=== PATIENT | female | born 1995 | race Caucasian/White ===

== ENCOUNTER 2019-11-17 10:24 | Emergency (ER) | payer MEDICAID, SELFPAY ==
--- NOTE | 2019-11-17 10:29 | ED_ITS ---
HPI - General: Chief complaint: Vaginal Bleeding Stated complaint: preg/spotting Time Seen by Provider: 11/17/19 10:29 Source: patient Mode of arrival: ambulatory Limitations: no limitations History of Present Illness: HPI Narrative: Patient presents today with complaints of vaginal bleeding. Patient noticed some blood when she wiped this morning. Patient denies any cramping or other discomfort. Patient is and last week was told [facility] Patient's last menstrual cycle was October 07. Patient appears well. Patient denies any fever or significant pain. MD Complaint: vaginal bleeding Review of Systems General: Reports: 10 or more systems reviewed and unremarkable except in HPI and below : Reports: vaginal bleeding (mild, spotting) PFSH ED PFSH: Social History Smoking and tobacco status: current every day smoker Physical Exam Const: COMMON NORMALS: no acute distress and patient oriented x3 GENERAL APPEARANCE: cooperative HENMT: COMMON NORMALS: normocephalic and Normal external nose present HEAD & SCALP: normal to inspection and normocephalic NOSE: Normal external nose present MOUTH: Normal oral and palatal mucosa present THROAT: posterior oropharynx normal Eye: GENERAL EYE: appearance normal, both eyes and all related structures Neck/C-Spine: COMMON NORMALS: full ROM Lymph: LYMPHATIC: no lymphadenopathy noted Chest: COMMONS NORMALS: normal inspection of the chest Resp: COMMON NORMALS: normal respiratory effort EFFORT & INSPECTION: Yes able to speak in complete sentences Cardio: COMMON NORMALS: regular rate and regular rhythm RATE: regular rate RHYTHM: regular rhythm GI: COMMON NORMALS: non-tender : COMMON NORMALS: Yes no CVA tenderness BLADDER/KIDNEY EXAM: Yes no CVA tenderness Back/Pelvis: COMMON NORMALS: no CVA tenderness and thoracic and lumbar spine normal to inspection Extremity: COMMON NORMALS: normal to inspection Neuro: COMMON NORMALS: patient oriented x3 and moves all extremities Psych: COMMON NORMALS: mental status grossly normal and cooperative Skin: COMMON NORMALS: no rashes or lesions noted GENERAL SKIN EXAM: no rashes or lesions noted Course Vital Signs: Vital signs: Vital Signs Temperature 97.7 F 11/17/19 10:30 Pulse Rate 75 11/17/19 10:30 Respiratory Rate 16 11/17/19 10:30 Blood Pressure 109/73 11/17/19 10:30 Pulse Oximetry 100 06/24/20 10:30 MDM - OB/Uterine Contractions MDM Narrative: Medical decision making narrative: Patient came in this morning for concerns of spotting when she wiped. Patient appears well. Patient denies any cramping in the lower abdomen. Respirations were even lungs are clear to auscultation. Bowel sounds were present. No tenderness is noted on palpation the abdomen. Differential diagnosis includes but not limited to urinary tract infection, threatened miscarriage, spontaneous , first trimester idiopathic bleeding. Laboratory values were normal. Urinalysis was clear. hCG was 5500. Ultrasound noted a 5-week 5-day fetus and closed cervix. Reviewed exam with patient recommendations for treatment and follow-up. Patient reported understanding agreed to plan. Lab Data: Labs: Lab Results 11/17/19 11/17/19 11/17/19 Range/Units 10:43 10:43 10:43 WBC 7.5 (4.0-10.0) 10^3/ uL RBC 4.62 (4.1-5.3) 10^6/u L Hgb 14.3 (11.5-15.3) g/dL Hct 42.8 (37.0-47.0) % MCV 92.6 (81-99) fL MCH 31.0 (28.0-34.0) pg MCHC 33.4 (30.0-36.0) g/dL RDW 12.8 (12.1-15.1) % Plt Count 272 (130-400) 10^3/c mm MPV 9.9 (7.4-10.4) fL Neut % (Auto) 64.3 % Lymph % (Auto) 25.4 % Isabella % (Auto) 5.9 % Eos % (Auto) 3.6 % Baso % (Auto) 0.5 % Neut # (Auto) 4.8 (1.8-7.7) 10^3/u L Lymph # (Auto) 1.9 (0.8-4.8) 10^3/u L Isabella # (Auto) 0.4 (0.2-0.9) 10^3/u L Eos # (Auto) 0.3 (0.0-0.8) 10^3/u L Baso # (Auto) 0.0 (0.0-0.1) 10^3/u L Nucleated RBC % (a uto) 0 % Nucleated RBCs # 0.0 /100WBC Sodium 139 (136-145) mmol/L Potassium 4.0 (3.5-5.1) mmol/L Chloride 105 (98-107) mmol/L Carbon Dioxide 24 (22-29) mmol/L Anion Gap 14.0 (5-19) BUN 10 (6-20) mg/dL Creatinine 0.5 (0.5-0.9) mg/dL GFR Calculation 152.9 H (90-130) mL/min Glucose 95 (65-115) mg/dL Calculated Osmolal ity 284 L (285-295) mOsm/k g Calcium 9.3 (8.5-10.5) mg/dL Total Bilirubin 0.8 (0.15-1.2) mg/dL AST 12 (0-32) U/L ALT 10 (0-33) U/L Alkaline Phosphata se 45 (35-105) IU/L Total Protein 7.3 (6.6-8.7) g/dL Albumin 4.4 (3.5-5.2) g/dL Globulin 2.9 (1.3-4.6) g/dL Ser , Sonam i-Qnt 5508.00 mIU/mL Urine Color (Yellow) Urine Appearance (CLEAR) Urine pH (5-7) Ur Specific Gravit y (1.005-1.030) Urine Protein (Negative) Urine Glucose (UA) (Normal) Urine Ketones (Negative) Urine Blood (Negative) Urine Nitrate (Negative) Urine Bilirubin (NEGATIVE) Urine Urobilinogen (Negative) mg/dL Ur Leukocyte Edie ase (Negative) Blood Type A Positive Rho(D) Type Positive 11/17/19 Range/Units 11:27 WBC (4.0-10.0) 10^3/ uL RBC (4.1-5.3) 10^6/u L Hgb (11.5-15.3) g/dL Hct (37.0-47.0) % MCV (81-99) fL MCH (28.0-34.0) pg MCHC (30.0-36.0) g/dL RDW (12.1-15.1) % Plt Count (130-400) 10^3/c mm MPV (7.4-10.4) fL Neut % (Auto) % Lymph % (Auto) % Isabella % (Auto) % Eos % (Auto) % Baso % (Auto) % Neut # (Auto) (1.8-7.7) 10^3/u L Lymph # (Auto) (0.8-4.8) 10^3/u L Isabella # (Auto) (0.2-0.9) 10^3/u L Eos # (Auto) (0.0-0.8) 10^3/u L Baso # (Auto) (0.0-0.1) 10^3/u L Nucleated RBC % (a uto) % Nucleated RBCs # /100WBC Sodium (136-145) mmol/L Potassium (3.5-5.1) mmol/L Chloride (98-107) mmol/L Carbon Dioxide (22-29) mmol/L Anion Gap (5-19) BUN (6-20) mg/dL Creatinine (0.5-0.9) mg/dL GFR Calculation (90-130) mL/min Glucose (65-115) mg/dL Calculated Osmolal ity (285-295) mOsm/k g Calcium (8.5-10.5) mg/dL Total Bilirubin (0.15-1.2) mg/dL AST (0-32) U/L ALT (0-33) U/L Alkaline Phosphata se (35-105) IU/L Total Protein (6.6-8.7) g/dL Albumin (3.5-5.2) g/dL Globulin (1.3-4.6) g/dL Ser , Sonam i-Qnt mIU/mL Urine Color Yellow (Yellow) Urine Appearance Clear (CLEAR) Urine pH 5 (5-7) Ur Specific Gravit y 1.020 (1.005-1.030) Urine Protein Neg (Negative) Urine Glucose (UA) Norm (Normal) Urine Ketones Negative (Negative) Urine Blood Neg (Negative) Urine Nitrate Negative (Negative) Urine Bilirubin Neg (NEGATIVE) Urine Urobilinogen Norm (Negative) mg/dL Ur Leukocyte Edie ase Negative (Negative) Blood Type Rho(D) Type Discharge Plan Discharge Patient Disposition: Home, Self-Care Clinical Impression: Vaginal bleeding, Miscarriage, threatened, early Condition: Stable Prescriptions: No Action 28 mg iron- 800 mcg Tablet 1 tab PO DAILY RF: 0 Discharge Orders: Discharge Order (Routine); Ordered 11/17/19 Ordered By: Jose De La O Discharge Diet: Usual diet Discharge Activity: Increase activity as tolerated Patient Instructions: Threatened Miscarriage (ED) Activity Restrictions/Additional Instructions: Drink plenty of water. Activity as tolerated. Utilize pelvic rest until bleeding has stopped. Follow-up with primary care in 1 week. Return to the ER for worsening pain or heavy bleeding. 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
[2019-11-17 10:30] VITALS: BP 109/73; PULSE 75; RESP 16; TEMP 36.5; O2SAT 100; BMI 25.3
--- NOTE | 2019-11-17 10:31 | US_ITS ---
WS: [id number] EARLY OBSTETRICAL ULTRASOUND (<14 WEEKS). HISTORY: , bleeding COMPARISON: None available. Uterus is slightly enlarged. Uterus is anteverted. There is an intrauterine gestational sac. Normal-a ppearing yolk sac. No cardiac activity is identified. There is what appears to be a pole measuring 2 mm corresponding to a gestation of 5 weeks and 5 days. No free fluid. Both ovaries are identified and contain normal vascularity. No adnexal masses. US/US OB <=14 wk fetus w transvag IMPRESSION: 1. Intrauterine gestational sac without cardiac activity. age calculated at 5 weeks and 5 days. Probably early intrauterine gestation. 2. Recommend follow-up ultrasound in one week to confirm cardiac activity. 3. No adnexal mass.
[2019-11-17 10:52] LABS: Basophils % 0.5 %; Eosinophils # 0.3 10^3/uL (0.0-0.8); Eosinophils % 3.6 %; Hematocrit 42.8 % (37.0-47.0); Hemoglobin 14.3 g/dL (11.5-15.3); Lymphocytes # 1.9 10^3/uL (0.8-4.8); Lymphocytes % 25.4 %; Mean Corpuscular HGB Conc 33.4 g/dL (30.0-36.0); Mean Corpuscular Volume 92.6 fL (81-99); Mean Platelet Volume 9.9 fL (7.4-10.4); Monocytes # 0.4 10^3/uL (0.2-0.9); Monocytes % 5.9 %; Neutrophils # 4.8 10^3/uL (1.8-7.7); Neutrophils % 64.3 %; Nucleated Red Blood Cells % 0 %; Platelet Count 272 10^3/cmm (130-400); Red Blood Count 4.62 10^6/uL (4.1-5.3); Red Cell Distribution Width 12.8 % (12.1-15.1); White Blood Count 7.5 10^3/uL (4.0-10.0)
[2019-11-17 11:13] LABS: Alanine Aminotransferase 10 U/L (0-33); Albumin Level 4.4 g/dL (3.5-5.2); Alkaline Phosphatase 45 IU/L (35-105); Aspartate Amino Transferase 12 U/L (0-32); Blood Urea Nitrogen 10 mg/dL (6-20); Calcium 9.3 mg/dL (8.5-10.5); Carbon Dioxide 24 mmol/L (22-29); Chloride 105 mmol/L (98-107); Globulin 2.9 g/dL (1.3-4.6); Glomerular Filtration Rate 152.9 mL/min (90-130); Glucose 95 mg/dL (65-115); Osmolality Calculated 284 mOsm/kg (285-295); Sodium 139 mmol/L (136-145); Total Bilirubin 0.8 mg/dL (0.15-1.2); Total Protein 7.3 g/dL (6.6-8.7)
--- NOTE | 2019-11-17 11:21 | PC.NURSE ---
US COMPLETED, PATIENT TOLERATED WELL
[2019-11-17 11:32] LABS: Add Urine Microscopic? NO
[2019-11-17 11:37] LABS: Bilirubin Urine Neg (NEGATIVE); Blood Urine Neg (Negative); Glucose Urine UA Norm (Normal); Ketones Urine Negative (Negative); Leukocyte Esterase Urine Negative (Negative); Nitrate Urine Negative (Negative); Protein Urine Neg (Negative); Urine Appearance Clear (CLEAR); Urine Color Yellow (Yellow); Urobilinogen Urine Norm (Negative); pH Urine 5 (5-7)
[2019-11-17 12:16] VITALS: BP 107/81; PULSE 71; RESP 17; O2SAT 100
== END 2019-11-17 12:18 | disposition home or self-care (01) ==
PROVIDERS: Emergency Provider Nurse Practitioner Family
DX: O20.0 Threatened abortion (principal); Z3A.01 Less than 8 weeks gestation of pregnancy; O99.331 Smoking (tobacco) complicating pregnancy, first trimester; F17.210 Nicotine dependence, cigarettes, uncomplicated
CPT/HCPCS: 12345; 36415; 76801; 76817; 76857; 80053; 81003; 84702; 85025; 86900; 87491; 87591; 87661; 99282; 99283

== ENCOUNTER 2020-01-19 20:56 | Emergency (ER) | payer MEDICAID, SELFPAY ==
[2020-01-19 21:47] VITALS: BP 111/70; PULSE 74; RESP 14; TEMP 36.5; O2SAT 98; BMI 25.2
--- NOTE | 2020-01-19 22:16 | XR_ITS ---
WS: [id number] Left foot, 3 views, 01/19/2020 Clinical Data: pain Comparison: None. Findings: No fractures or dislocations are seen. No bone destruction or erosion is noted. The joint spaces and soft tissues are normal. No radiopaque foreign body is seen. XR/XR foot LT min 3V* [id number] Impression: Negative left foot.
--- NOTE | 2020-01-19 23:14 | ED_ITS ---
HPI - Extremity Problem General: Chief complaint: Extremity Injury, Lower Stated complaint: stepped on nail/left foot also 14 weeks preg Time Seen by Provider: 01/19/20 23:14 History of Present Illness: HPI Narrative: Patient is a 24-year-old female that is 14 weeks who comes to the ED with left foot pain. Patient states that earlier today around 9:30 in the morning she stepped on a nail with left foot. Patient was walking barefoot outside and stepped on a nail. She removed the nail from her foot. She now says she has some tenderness and surrounding redness near injury site. Patient has not had an updated tetanus shot. Associated symptoms: Deny chest pain, fever(s) or rash Review of Systems Const: Denies: fever(s), chills or fatigue Eyes: Denies: change in vision or eye discomfort ENMT: Denies: throat pain, odynophagia, nasal discharge or nasal congestion Card: Denies: chest pain, palpitations, edema, swelling of feet/ankles, dyspnea on exertion or orthopnea Resp: Denies: dyspnea, productive cough or non-productive cough GI: Denies: abdominal pain, nausea, vomiting, diarrhea, constipation or hematochezia : Denies: flank pain, dysuria or hematuria Musc: Reports: extremity pain (Left foot pain where she stepped on nail.); Denies: neck pain, back pain or extremity swelling Skin/Breast: Reports: new lesions (Small puncture wound on left foot from where patient stepped on nail.); Denies: rash Neuro: Denies: headache(s), numbness in extremities or weakness in extremities PFS ED PFSH: Social History Smoking and tobacco status: current every day smoker Female Reproductive History: Date of last menstrual period: 10/08/19 Physical Exam Const: COMMON NORMALS: no acute distress, patient oriented x3 and alert GENERAL APPEARANCE: cooperative and comfortable HENMT: COMMON NORMALS: normocephalic HEAD & SCALP: normocephalic MOUTH: Normal oral and palatal mucosa present THROAT: posterior oropharynx normal and uvula midline Neck/C-Spine: COMMON NORMALS: supple GENERAL: Yes normal visual inspection Resp: COMMON NORMALS: normal respiratory effort, No retractions, No use of accessory muscles and clear to auscultation bilaterally AUSCULTATION: clear to auscultation bilaterally Cardio: COMMON NORMALS: regular rate, regular rhythm, S1 normal heart sound present, S2 normal heart sound present, No gallops present (Cardio), No clicks present (Cardio), No murmurs present (Cardio) and Peripheral pulses 2+ throughout RATE: regular rate RHYTHM: regular rhythm HEART SOUNDS: S1 normal heart sound present and S2 normal heart sound present PERIPHERAL PULSES: Peripheral pulses 2+ throughout GI: COMMON NORMALS: Normal to inspection, nondistended, normoactive bowel sounds present, Soft to palpation, non-tender and no masses PALPATION: Yes Soft to palpation : COMMON NORMALS: Yes no CVA tenderness BLADDER/KIDNEY EXAM: Yes no CVA tenderness Back/Pelvis: COMMON NORMALS: no CVA tenderness Extremity: NARRATIVE EXTREMITY EXAM: Patient had very small puncture wound on bottom of left foot. There was some tenderness upon palpation and a little bit of erythema. No purulent discharge. Neuro: COMMON NORMALS: patient oriented x3 and moves all extremities SENSORIUM/ORIENTATION: Yes alert Skin: COMMON NORMALS: no rashes or lesions noted GENERAL SKIN EXAM: no rashes or lesions noted and dry skin Course Vital Signs: Vital signs: Vital Signs Temperature 97.7 F 01/19/20 21:47 Pulse Rate 84 01/20/20 00:27 Respiratory Rate 18 01/20/20 00:27 Blood Pressure 114/64 01/20/20 00:27 Pulse Oximetry 97 01/20/20 00:27 MDM - Extremity (Nontraumatic) MDM Narrative: Medical decision making narrative: Patient is a 24-year-old female comes to the ED with left foot pain after stepping on a nail earlier today. Patient removed the nail from foot. Exam showed a very small puncture wound on bottom of left foot with some surrounding erythema and tenderness. No purulent drainage or warmth. X-ray of left foot showed no acute findings or foreign body seen. Patient was given an updated tetanus shot while here in the ED and given a dose of cephalexin. Patient was sent home with a prophylactic dose of cephalexin to try to prevent any infection. Return to ED precautions given. Follow-up with PCP at next scheduled appointment. Patient understood and agreed with plan. Imaging Data^: Xray Ortho: Attestation: I personally reviewed and interpreted this imaging study as follows: My impression: Left foot x-ray showed no acute findings or foreign body seen. Discharge Plan Discharge Patient Disposition: Home Clinical Impression: Puncture wound of foot Qualifiers: Encounter type: initial encounter Laterality: left Qualified Code(s): S91.332A - Puncture wound without foreign body, left foot, initial encounter Condition: Stable Prescriptions: New cephalexin 500 mg capsule 500 mg PO Q6H 4 Days Qty: 16 RF: 0 No Action 28 mg iron- 800 mcg Tablet 1 tab PO DAILY RF: 0 Discharge Orders: Discharge Order (Routine); Ordered 01/19/20 Ordered By: Mark Rincon Discharge Diet: Regular Discharge Activity: Increase activity as tolerated Patient Instructions: Puncture Wound (ED) Activity Restrictions/Additional Instructions: Follow-up with medical provider as directed in 7 days. Take medications as prescribed. You received an updated tetanus dose while here in the ED. Return to the ER or your medical provider if condition worsens. Please read and understand discharge instructions. If any questions, please ask. 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
[2020-01-19 23:45] VITALS: PULSE 88
[2020-01-19] MEDS: cephALEXin 500 mg Capsule PO (23:45)
[2020-01-19] MEDS: acetaminophen 325 mg Tablet 650 MG PO (23:45)
[2020-01-19] MEDS: tetanus-dipt-pertussis 0.5 mL SDV IM (23:50)
[2020-01-20 00:27] VITALS: BP 114/64; PULSE 84; RESP 18; O2SAT 97
== END 2020-01-19 23:44 | disposition home or self-care (01) ==
PROVIDERS: Emergency Provider Physician Assistant
DX: S91.332A Puncture wound without foreign body, left foot, initial encounter (principal); W45.0XXA Nail entering through skin, initial encounter; F17.210 Nicotine dependence, cigarettes, uncomplicated; Z23 Encounter for immunization
CPT/HCPCS: 12345; 73630; 90471; 90715; 99281; 99283

== ENCOUNTER 2020-04-01 20:25 | Outpatient (CLI) | payer MEDICAID, SELFPAY ==
[2020-04-01 20:25] VITALS: BMI 27.8
[2020-04-01 20:34] VITALS: BP 116/64; PULSE 77
[2020-04-01 20:49] VITALS: BP 116/66; PULSE 80
[2020-04-01 21:04] VITALS: BP 120/60; PULSE 75
[2020-04-01 21:33] VITALS: TEMP 36.6
[2020-04-01 21:34] VITALS: BP 120/60; PULSE 75; RESP 16; TEMP 36.6
== END 2020-04-01 21:35 | disposition home or self-care (01) ==
LOC: OPOB 20:26 → OBGYN 20:26
PROVIDERS: Visit Provider Family Medicine
DX: O36.8190 Decreased fetal movements, unspecified trimester, not applicable or unspecified (principal); Z3A.00 Weeks of gestation of pregnancy not specified
CPT/HCPCS: 99211

== ENCOUNTER → 2020-05-29 11:30 | Outpatient (BNVA) | payer MEDICAID, SELFPAY | PROVIDERS: Visit Provider Obstetrics & Gynecology Obstetrics | DX: Z20.828 Contact with and (suspected) exposure to other viral communicable diseases (principal) | CPT/HCPCS: 87426 ==